=== PATIENT | male | born 1995 | race African-American/Black ===

== ENCOUNTER 2017-05-02 21:16 | Emergency (ER) | payer SELFPAY ==
[2017-05-02 21:55] LABS: Hematocrit 34.9 % (42.0-52.0); Hemoglobin 13.1 gm/dL (13.5-18.0); Mean Cell Volume 74.1 fl (78-100); Mean Corpuscular Hemoglobin 27.8 pg (27-31); Mean Corpuscular Hgb Conc 37.5 g/dl (32-36); Mean Platelet Volume 9.8 fl (6.0-9.5); NRBC# 0.2 k/mm3 (0-1); Neutrophil # 5.3 K/mm3 (1.3-6.0); Neutrophil % 54.6 % (42-75.0); Platelet Count 332 K/mm3 (150-450); Red Blood Count 4.71 M/mm3 (4.7-6.0); Red Cell Distribution Width 14.5 % (11.5-14.0); White Blood Count 9.7 K/mm3 (4.0-10.5)
--- NOTE | 2017-05-02 22:11 | ERNOTE ---
<Sher Martinez - Last Filed: 05/02/17 22:14> Medical Problem HPI - Narrative Date of Service: 05/02/17 - General Chief Complaint: General Assessment Time Seen by Provider: 05/02/17 21:32 - Immun/Allergies/Home Medications Immunizations: IMMUNIZATION HX Immunizations Up to Date Yes History of Influenza Vaccine No Allergies/Adverse Reactions: Allergies No Known Allergies Allergy (Verified 01/03/16 22:18) Home Medications: HOME MEDICATIONS Folic Acid 1 mg PO DAILY 01/03/16 [Last Taken Unknown] - History of Present History Narrative: Patient presents to the emergency room for what he senses a lump on his right rib cage that has been getting bigger for the last 3 months. Patient's girlfriend also states that she feels like has eyes MR jaundice. Patient incidentally has a past medical history of sickle cell disease but does not see a primary care physician. Date (Duration): 05/02/17 Timing: getting worse Review of Systems - Review of Systems Constitutional: Present: no symptoms reported EYE: Present: no symptoms reported ENT: Present: no symptoms reported Respiratory: Present: no symptoms reported Cardiology: Present: no symptoms reported Gastrointestinal/Abdominal: Present: no symptoms reported Genitourinary: Present: no symptoms reported Musculoskeletal: Present: no symptoms reported Skin: Present: See HPI, lumps, change in color Neurological: Present: no symptoms reported Endocrine: Present: no symptoms reported Hematologic/Lymphatic: Present: no symptoms reported Psych: Present: no symptoms reported All Other Systems: All systems neg except as marked - Patient's Past Medical History Patient History - Medical: Other Patient History - Cardiac/Respiratory: No pertinent hx Patient History - Cancer: No Hx of Cancer Patient History - Surgical Procedures: No surgical history Patient History - Other: None - Family History Mother Family History - Medical: Hypothyroidism Family History - Cardiac/Respiratory: Hypertension Father Family History - Medical: , History Unknown - Social History Living Situations: parents Abuse History: No History of abuse Psych History: No pertinent hx Smoking Status: Never smoker Have you smoked in the past 12 months: No Do you dip or chew tobacco: No Alcohol Use: none Drug Use: marijuana - Immunizations Immunizations Up to Date: Yes History of Influenza Vaccine: No Physical Exam - Physical Exam Narrative: patients sclera appears slightly off white, rip cage has a very small soft flat moveable lump. it was not painful to palpation. lesion is about 0.5x0.5cm. patient has them bilaterally on both sides of his rib cage. General Appearance: Present: wd/wn, alert, no apparent distress Head Exam: Present: normal inspection, no evidence of injury Eye Exam: Normal inspection: bilateral, PERRL: bilateral, EOMI: bilateral, Scleral icterus: bilateral - off white Ears, Nose, Throat: Present: normal ENT inspection, normal pharynx Neck: Present: normal inspection, nontender Respiratory: Present: no respiratory distress, normal breath sounds, no accessory muscle use, chest nontender, lungs clear Cardiovascular/Chest: Present: regular rate, rhythm, no murmur, normal peripheral pulses Gastrointestinal/Abdominal: Present: normal bowel sounds, nontender, nondistended, soft, no organomegaly. Absent: tenderness, abnormal bowel sounds , distended, guarding, rebound, McBurney sign, Obturator sign, Faria sign, Psoas sign, mass, hernia, hepatomegaly Back Exam: Present: normal inspection, normal range of motion, no CVA tenderness , no vertebral tenderness Extremity Exam: Present: normal inspection, non-tender, normal range of motion, no edema Neurological Exam: Present: alert, oriented, normal mood/affect, no motor/ sensory deficits, recreation aide II-XII nml as tested, normal cerebellar test. Absent: facial droop, motor weakness, disoriented to person, disoriented to time, disoriented to place, disoriented to situation Skin Exam: Present: normal color, warm/dry Lymphatic Exam: Present: no adenopathy ED Progress - Vital Signs Patient's Vital Signs:: I have reviewed the patient's vital signs. Vital Signs: Vital Signs 05/02/17 21:20 Temperature 36.6 C Pulse Rate 73 Respiratory 16 Rate Blood Pressure 119/71 O2 Sat by Pulse 99 Oximetry - Progress/Reassessment Chief Complaint: General Assessment Progress:: Unchanged - Transfer of Care Physician Sign Out: Sher Martinez Brief History: girlfriend feels sclera is more yellow Receiving Physician: Thi Zamora Pending Results: Labs Expected Disposition: Discharge Plan - Plan Plan: patient to obtain a PCP tomorrow, Dr Bradford to take over care. Patient to be discharged if CMP is WNL Departure - Departure Clinical Impression: Elevated bilirubin Disposition: Home self-care Condition: Good <Thi Zamora - Last Filed: 05/02/17 22:59> Medical Problem HPI - Immun/Allergies/Home Medications Immunizations: IMMUNIZATION HX Immunizations Up to Date Yes History of Influenza Vaccine No ED Progress - Vital Signs Vital Signs: Vital Signs 05/02/17 05/02/17 21:20 22:40 Temperature 36.6 C Pulse Rate 73 70 Respiratory 16 16 Rate Blood Pressure 119/71 120/72 O2 Sat by Pulse 99 97 Oximetry Plan - Plan Plan: Pt received IV hydration and was discharged home to follow up with PCP
[2017-05-02 22:12] LABS: Albumin * 4.2 gm/dl (3.4-5.0); Anion Gap 13.7 mmol/L (6.8-13.8); BUN/Creatinine Ratio 7.3 (9.0-21.6); Bilirubin, Total 4.4 mg/dL (0.0-1.1); Ca. Corrected For Albumin 8.3 mg/dL (8.4-10.2); Calcium * 8.8 mg/dL (7.9-10.9); Carbon Dioxide 28.9 mmol/L (24-32.6); Potassium 3.6 mmol/L (3.4-4.6); Total Protein 7.2 gm/dL (6.2-8.2)
[2017-05-02] MEDS ORDERED: NORMAL SALINE 1,000 ML IV ONE (22:30)
[2017-05-03] VITALS: BP 121/72
== END 2017-05-02 23:58 | disposition home or self-care (01) ==
LOC: ER 21:16
DX: E80.7 Disorder of bilirubin metabolism, unspecified (principal); Z86.2 Personal history of diseases of the blood and blood-forming organs and certain disorders involving the immune mechanism

== ENCOUNTER 2017-05-25 23:43 | Emergency (ER) | payer SELFPAY ==
--- NOTE | 2017-05-26 00:09 | ERNOTE ---
Headache ER HPI - General Presenting Symptoms: headache Time Seen by Provider: 05/25/17 23:58 Source: patient Exam Limitations: no limitations - Immun/Allergies/Home Medications Immunizations: IMMUNIZATION HX Immunizations Up to Date Yes History of Influenza Vaccine No Hx Pneumococcal Vaccination No Allergies/Adverse Reactions: Allergies No Known Allergies Allergy (Verified 01/03/16 22:18) Home Medications: HOME MEDICATIONS SUMAtriptan SUCCINATE [Imitrex] 50 mg PO Q2H PRN #6 tab 05/26/17 [Last Taken Unknown] - Pain Pain Score: 7 - History of Present Illness Activity at onset: other Timing of Headache: abrupt Context Headache: Absent: meningitis exposure, recent head injury < 24 hrs ago Quality: Present: throbbing Severity Maximum: Present: severe Severity-Currently: Present: moderate Headache frequency: Present: occasional headaches Modifying Factors - (Improves): Reports: rest Modifying Factors - (Worsens): Reports: movement, exposure to light Associated Symptoms: Reports: nausea, vision changes - blurry vision 15-20 minutes prior to headache Exacerbated by:: Reports: light, noise Review of Systems - Review of Systems Constitutional: Absent: recent illness EYE: Present: blurred vision ENT: Absent: nose congestion, nasal drainage Respiratory: Absent: shortness of breath Cardiology: Absent: chest pain Gastrointestinal/Abdominal: Present: nausea Genitourinary: Present: no symptoms reported Musculoskeletal: Present: neck pain - left side Skin: Absent: rash Neurological: Absent: dizziness/light-headedness, weakness, numbness, tingling Endocrine: Absent: excessive sweating, flushing Hematologic/Lymphatic: Present: no symptoms reported Psych: Present: no symptoms reported - Patient's Past Medical History Patient History - Medical: Other Patient History - Cardiac/Respiratory: No pertinent hx Patient History - Cancer: No Hx of Cancer Patient History - Surgical Procedures: Other Patient History - Other: None - Family History Mother Family History - Medical: Hypothyroidism Family History - Cardiac/Respiratory: Hypertension Father Family History - Medical: , History Unknown - Social History Living Situations: parents Abuse History: No History of abuse Psych History: No pertinent hx Smoking Status: Never smoker Have you smoked in the past 12 months: No Do you dip or chew tobacco: No Alcohol Use: none Drug Use: none - Immunizations Immunizations Up to Date: Yes Hx Pneumococcal Vaccination: No History of Influenza Vaccine: No Physical Exam - Physical Exam General Appearance: Present: wd/wn, alert, no apparent distress Head Exam: Present: normal inspection, no evidence of injury Eye Exam: PERRL: bilateral, EOMI: bilateral Ears, Nose, Throat: Present: normal ENT inspection Neck: Present: normal inspection, supple, tender lateral - left Respiratory: Present: no respiratory distress, no accessory muscle use Back Exam: Present: normal inspection, normal range of motion, no vertebral tenderness Extremity Exam: Present: normal inspection, normal range of motion, no edema Neurological Exam: Present: alert, oriented, normal mood/affect, no motor/ sensory deficits Skin Exam: Present: normal color, warm/dry Lymphatic Exam: Present: no adenopathy ED Progress - Vital Signs Vital Signs: Vital Signs 05/25/17 23:50 Temperature 36.6 C Pulse Rate 74 Respiratory 14 Rate Blood Pressure 134/80 - Progress/Reassessment Chief Complaint: Headache Progress:: Improved Progress Note-Subjective: 05/26/17 01:31 Pt. sleeping, when awakened he reports 5/10 pain Departure Clinical Impression: Migraine headache with aura Qualifiers: Status migrainosus presence: without status migrainosus Intractability: not intractable Qualified Code(s): G43.109 - Migraine with aura, not intractable, without status migrainosus - Departure Disposition: Home Follow Up Needed Condition: Good Instructions: Migraine Headache, [id number] Additional Instructions: establish with a primary care physician and follow up for maintenance treatment Prescriptions: SUMAtriptan SUCCINATE [Imitrex] 50 mg PO Q2H PRN #6 tab PRN Reason: migraines
[2017-05-26] MEDS ORDERED: NALBUPHINE HCL 20 MG/ML AMPUL ONE (00:11)
[2017-05-26] MEDS ORDERED: SUMAtriptan SUCCINATE 6 MG/0.5 ML VIAL SC ONE ×2 (00:22→00:27)
[2017-05-26] MEDS ORDERED: KETOROLAC TROMETHAMINE 30 MG/ML VIAL IV ONE (00:22)
[2017-05-26] MEDS ORDERED: NORMAL SALINE 1,000 ML IV ONE (00:22)
[2017-05-26] MEDS ORDERED: ORPHENADRINE CITRATE 30 MG/ML VIAL IV ONE (00:22)
[2017-05-26] MEDS ORDERED: KETOROLAC TROMETHAMINE 30 MG/ML VIAL ONE (00:27)
[2017-05-26] MEDS ORDERED: ORPHENADRINE CITRATE 30 MG/ML VIAL ONE (00:27)
[2017-05-26] MEDS ORDERED: ONDANSETRON HCL/PF 2 MG/ML VIAL ONE (00:27)
[2017-05-26] MEDS ORDERED: ONDANSETRON HCL/PF 2 MG/ML VIAL IV ONE (00:29)
[2017-05-26 01:38] VITALS: BP 127/68
== END 2017-05-26 01:50 | disposition home or self-care (01) ==
LOC: ER 23:43
DX: G43.109 Migraine with aura, not intractable, without status migrainosus (principal)
CPT/HCPCS: 96372; 96374; 96375; 99284; J2405

== ENCOUNTER 2017-06-18 12:01 | Emergency (ER) | payer SELFPAY ==
[2017-06-18] MEDS ORDERED: HYDROmorphone HCL 1 MG/ML DISP.SYRIN ONE (12:54)
[2017-06-18] MEDS ORDERED: HYDROmorphone HCL 1 MG/ML DISP.SYRIN IV ONE (12:55)
[2017-06-18] MEDS ORDERED: NORMAL SALINE 1,000 ML IV PRN (13:03)
[2017-06-18 13:05] LABS: Hematocrit 31.5 % (42.0-52.0); Hemoglobin 11.9 gm/dL (13.5-18.0); Mean Cell Volume 74.5 fl (78-100); Mean Corpuscular Hemoglobin 28.1 pg (27-31); Mean Corpuscular Hgb Conc 37.8 g/dl (32-36); Mean Platelet Volume 9.6 fl (6.0-9.5); Platelet Count 334 K/mm3 (150-450); Red Blood Count 4.23 M/mm3 (4.7-6.0); Red Cell Distribution Width 14.6 % (11.5-14.0); White Blood Count 11.4 K/mm3 (4.0-10.5)
[2017-06-18 13:07] LABS: Total Cells Counted 100
[2017-06-18 13:21] LABS: ALT 16 U/L (19-67); AST 24 U/L (0-48); Albumin * 4.2 gm/dl (3.4-5.0); Alkaline Phosphatase * 47 U/L (50-170); Anion Gap 12.6 mmol/L (6.8-13.8); BUN/Creatinine Ratio 10.6 (9.0-21.6); Bilirubin, Total 4.4 mg/dL (0.0-1.1); Blood Urea Nitrogen 9 mg/dL (6-23); Ca. Corrected For Albumin 8.3 mg/dL (8.4-10.2); Calcium * 8.8 mg/dL (7.9-10.9); Carbon Dioxide 25.9 mmol/L (24-32.6); Chloride 106 mmol/L (97-106); Glucose * 91 mg/dL (70-110); Potassium 3.5 mmol/L (3.4-4.6); Sodium 141 mmol/L (132-142); Total Protein 7.1 gm/dL (6.2-8.2)
[2017-06-18 13:22] LABS: Troponin I Less than 0.017 ng/ml (0.00-0.10)
[2017-06-18 13:48] LABS: Band 1 % (0-2.0); Eosinophil 3 % (0-3); Lymphocyte 29 % (20-51); Monocyte 14 % (0-9); Neutrophil 53 % (42-75); Platelet Estimate Normal (NORMAL); Target Cells 2+
[2017-06-18 13:50] LABS: Schistocytes 1+; Spherocyte 1+; Tear Drop Cells 1+
[2017-06-18 13:51] LABS: Anisocytosis 1+; Poikilocytosis 1+
[2017-06-18] MEDS ORDERED: NORMAL SALINE 1,000 ML IV ONE ×2 (13:59→17:57)
--- NOTE | 2017-06-18 14:16 | ERNOTE ---
Upper Extremity HPI - Narrative Date of Service: 06/18/17 - General Extremities Pain Location: shoulder: right Time Seen by Provider: 06/18/17 12:38 Source: patient - Immun/Allergies/Home Medications Immunizations: IMMUNIZATION HX Immunizations Up to Date Yes History of Influenza Vaccine No Hx Pneumococcal Vaccination No Allergies/Adverse Reactions: Allergies Allergy/AdvReac Type Severity Reaction Status Date / Time No Known Allergies Allergy Verified 06/18/17 12:15 Home Medications: HOME MEDICATIONS NK [No Home Medication] 06/17/17 [Last Taken Unknown] - History of Present Illness Narrative: 22-year-old male presents to the emergency room 41 describes a sickle cell pain to his right shoulder and low back. Patient was recently seen yesterday by Jazzy paige in the clinic, Who treated him for sickle cell and was concerned for crisis. Patient states that he has been having this pain a few days ago and has continually gradually worsened over the last few days. Pain is at a 7. States pain starts in the shoulder and goes down his right arm into his hand. Patient states that he has pain in his low back that started last night. Patient states that yesterday after his fluids and oxygen and he did not feel well and did have emesis 2 last night. Date (Duration): 06/18/17 Occurred: yesterday Location of Incident: home Modifying Factors - (Improves): Reports: pain medication Other Injuries: Reports: none Review of Systems - Narrative Narrative: right arm pain, low right back pain, denies chest pain and denies shortness of breath. - Review of Systems Constitutional: Present: See HPI EYE: Present: no symptoms reported ENT: Present: no symptoms reported Respiratory: Present: no symptoms reported Cardiology: Present: no symptoms reported Gastrointestinal/Abdominal: Present: See HPI, nausea Genitourinary: Present: no symptoms reported Musculoskeletal: Present: See HPI, joint pain Skin: Present: no symptoms reported Neurological: Present: no symptoms reported Endocrine: Present: no symptoms reported Hematologic/Lymphatic: Present: no symptoms reported, See HPI Psych: Present: no symptoms reported All Other Systems: All systems neg except as marked - Patient's Past Medical History Patient History - Medical: Other Patient History - Cardiac/Respiratory: No pertinent hx Patient History - Cancer: No Hx of Cancer Patient History - Surgical Procedures: Other Patient History - Other: None - Family History Mother Family History - Medical: Hypothyroidism Family History - Cardiac/Respiratory: Hypertension Father Family History - Medical: , History Unknown Family History - Cancer: Prostate - Social History Living Situations: home Abuse History: No History of abuse Psych History: No pertinent hx Smoking Status: Never smoker Alcohol Use: none Drug Use: none - Immunizations Immunizations Up to Date: Yes Hx Pneumococcal Vaccination: No History of Influenza Vaccine: No Physical Exam - Physical Exam Narrative: patient has discomfort with ROm to right shoulder and low back. General Appearance: Present: wd/wn, alert, no apparent distress Head Exam: Present: normal inspection, no evidence of injury Eye Exam: Normal inspection: bilateral, PERRL: bilateral, EOMI: bilateral Ears, Nose, Throat: Present: normal ENT inspection, normal pharynx Neck: Present: normal inspection, nontender, supple, full range of motion Respiratory: Present: no respiratory distress, normal breath sounds, no accessory muscle use, chest nontender, lungs clear. Absent: chest tenderness, respiratory distress Cardiovascular/Chest: Present: regular rate, rhythm, no murmur, normal peripheral pulses Peripheral Pulses: N=norm/S=strong/W=weak/B=bound/A=absent: Radial (R): Normal, Radial (L): Normal, Dorsalis-pedis (R): Normal, Dorsalis-pedis (L): Normal Gastrointestinal/Abdominal: Present: normal bowel sounds, nontender, nondistended, soft, no organomegaly. Absent: distended Back Exam: Present: normal inspection, CVA tenderness (R) Extremity Exam: Present: normal inspection, normal range of motion, no edema, bony tenderness, other - pain with ROm to right shoulder Neurological Exam: Present: alert, oriented, normal mood/affect, no motor/ sensory deficits, software release manager II-XII nml as tested. Absent: facial droop, motor weakness Skin Exam: Present: normal color, warm/dry Lymphatic Exam: Present: no adenopathy ED Progress - Results and Orders Patient's Lab Results:: I have reviewed the patient's lab results. - Vital Signs Patient's Vital Signs:: I have reviewed the patient's vital signs. Vital Signs: Vital Signs 06/18/17 06/18/17 06/18/17 12:11 13:04 13:35 Temperature 36.9 C Pulse Rate 83 70 70 Respiratory 16 15 16 Rate Blood Pressure 158/70 113/66 127/74 O2 Sat by Pulse 96 100 100 Oximetry - X-Ray X-Ray #1 X-Ray: chest Interpretation: Reviewed by me X-ray Comments: History: right shoulder pain, sickle cell Technique: Frontal and lateral views of the chest are evaluated. (2 ) views. Comparison: November 14, 2015. Findings: The lungs are symmetrically inflated. No focal consolidation. No pneumothorax or pleural effusion. Borderline cardiac silhouette enlargement. Mediastinal contours and pulmonary vasculature is normal. No acute osseous findings. IMPRESSION: Borderline cardiac silhouette enlargement. No acute pulmonary findings. Electronically signed by Vladimir Chaney D.O.. Vladimir Chaney DO Dict: 06/18/171334 Typed: 06/18/171334/ - Progress/Reassessment Chief Complaint: Upper Extremity Injury/Problem Progress:: Improved Plan - Plan Plan: After speaking with Jazzy patient's nurse practitioner and Dr. garcia, is felt that patient should be transferred to [facility] for further workup for his sickle cell crisis and the possible need for phresis or exchange. Hematological oncologist spoken to at [facility], and he agrees the patient needs to be directly admitted to the FLOOR. Patient and his significant other agree to this plan at this time. patient did not want to be transferred by ambulance to [facility]. patient states his girlfriend will drive him there. patient signed out AMA. I attempted to explain the risk and benefits of am EMS transfer to the patient and he continue to state he did not want to go in an ambulance. patient acknowledged that he understood the risks including , ME or PE. patient aware and still opted to sign out AMA Departure Clinical Impression: Sickle cell crisis - Departure Disposition: Against medical advice Condition: Stable
[2017-06-18 15:11] LABS: Urine Appearance Clear; Urine Bacteria None Seen; Urine Bilirubin Negative (NEGATIVE); Urine Blood Negative /ul (NEGATIVE); Urine Color Yellow; Urine Ketone Negative (NEGATIVE); Urine Nitrite Negative (NEGATIVE); Urine Protein Negative (NEGATIVE); Urine RBC None Seen /hpf (0-5); Urine Urobilinogen Normal (NORMAL); Urine WBC 0-5 /hpf (0-5)
[2017-06-18 15:14] LABS: Cocaine Ur Negative (NEGATIVE); Urine Barbiturate Negative (NEGATIVE); Urine Benzodiazepines Negative (NEGATIVE); Urine Opiates Negative (NEGATIVE); Urine PCP Negative (NEGATIVE)
[2017-06-18 15:15] LABS: Urine THC Positive (NEGATIVE)
[2017-06-18 18:45] VITALS: BP 122/67
== END 2017-06-18 18:50 | disposition left against medical advice (07) ==
LOC: ER 12:01
DX: D57.00 Hb-SS disease with crisis, unspecified (principal); Z53.21 Procedure and treatment not carried out due to patient leaving prior to being seen by health care provider

== ENCOUNTER 2017-06-24 19:41 | Emergency (ER) | payer SELFPAY ==
[2017-06-24] MEDS ORDERED: NORMAL SALINE 1,000 ML IV ONE (20:08)
[2017-06-24] MEDS ORDERED: KETOROLAC TROMETHAMINE 30 MG/ML VIAL IV ONE (20:19)
--- NOTE | 2017-06-24 20:24 | ERNOTE ---
Upper Extremity HPI - Narrative Date of Service: 06/24/17 - General Extremities Pain Location: arm: right Time Seen by Provider: 06/24/17 20:00 Source: patient Exam Limitations: no limitations - Immun/Allergies/Home Medications Immunizations: IMMUNIZATION HX Immunizations Up to Date No: Unknown History of Influenza Vaccine No Hx Pneumococcal Vaccination No Allergies/Adverse Reactions: Allergies Allergy/AdvReac Type Severity Reaction Status Date / Time No Known Allergies Allergy Verified 06/18/17 12:15 Home Medications: HOME MEDICATIONS Folic Acid 1 mg PO DAILY #30 tablet 06/24/17 [Last Taken Unknown] Naproxen [Naprosyn] 500 mg PO BID PRN #60 tab 06/24/17 [Last Taken Unknown] oxyCODONE HCL/ACETAMINOPHEN [Percocet 5 MG/325 MG] 1 tab PO Q6H PRN #20 tab 05/02 [Last Taken Unknown] - History of Present Illness Narrative: Pt. comes in with c/o R arm pain for 2 days that is aching in nature and states that he has also has some fatigue, malaise, and SOB with exertion. Pt. denies any fever, CP, sinus congestion, rhinorrhea, sore throat, alleviating factors or aggravating factors. Pt. states that he has been seen for a flare up with the same symptoms 6 days ago and was transferred to [facility] where they hydrated him and sent him home but did not call in any pain medications for him. Pt. also states that the outpatient tests that he was supposed to get this week and his follow up appointment with his new PCP were cancelled due to his insurance cancelling. Review of Systems - Review of Systems Constitutional: Present: weakness, fatigue, malaise. Absent: fever, chills EYE: Present: no symptoms reported ENT: Present: no symptoms reported. Absent: nose pain, nose congestion, nasal drainage Respiratory: Present: shortness of breath. Absent: cough Cardiology: Absent: chest pain, palpitations, edema Gastrointestinal/Abdominal: Present: no symptoms reported. Absent: nausea, vomiting, diarrhea Genitourinary: Present: no symptoms reported Musculoskeletal: Present: joint pain - R arm. Absent: back pain Skin: Present: no symptoms reported Neurological: Present: no symptoms reported. Absent: headache, dizziness/light- headedness, numbness, tingling All Other Systems: All systems neg except as marked - Patient's Past Medical History Patient History - Medical: Other - sickle cell Patient History - Cardiac/Respiratory: No pertinent hx Patient History - Cancer: No Hx of Cancer Patient History - Surgical Procedures: Other Patient History - Other: None - Family History Mother Family History - Medical: Hypothyroidism Family History - Cardiac/Respiratory: Hypertension Father Family History - Medical: , History Unknown Family History - Cancer: Prostate - Social History Living Situations: parents Abuse History: No History of abuse Psych History: No pertinent hx Smoking Status: Never smoker Have you smoked in the past 12 months: Yes - Marijuana Do you dip or chew tobacco: No Alcohol Use: none Drug Use: marijuana - Immunizations Immunizations Up to Date: No - Unknown Hx Pneumococcal Vaccination: No History of Influenza Vaccine: No Physical Exam - Physical Exam General Appearance: Present: wd/wn, alert, no apparent distress Head Exam: Present: normal inspection, no evidence of injury Eye Exam: Normal inspection: bilateral, PERRL: bilateral, EOMI: bilateral Ears, Nose, Throat: Present: normal ENT inspection, normal pharynx Neck: Present: normal inspection, nontender. Absent: lymphadenopathy (R), lymphadenopathy (L) Respiratory: Present: no respiratory distress, normal breath sounds, no accessory muscle use, chest nontender, lungs clear Cardiovascular/Chest: Present: regular rate, rhythm, no murmur, normal peripheral pulses Gastrointestinal/Abdominal: Present: normal bowel sounds, nontender, nondistended, soft, no organomegaly Back Exam: Present: normal inspection, normal range of motion, no CVA tenderness , no vertebral tenderness Extremity Exam: Present: normal inspection, non-tender, normal range of motion, no edema Neurological Exam: Present: alert, oriented, normal mood/affect, no motor/ sensory deficits Skin Exam: Present: normal color, warm/dry. Absent: pallor, skin rash ED Progress - Date and Time Seen: Date and Time: 06/24/17 21:30 Pt. states that pain went from 8 to 6 with toradol denies any change in other change in symptoms but appears comfortable at this time. Am concerned by pt. fatigue and malaise and elevated retic count so consulted pt. dog bather at [facility] and Dr Chi recommends to start pt. on 1mg Folic acid and Percocet for pain. - Results and Orders Patient's Lab Results:: I have reviewed the patient's lab results. - Vital Signs Patient's Vital Signs:: I have reviewed the patient's vital signs. Vital Signs: Vital Signs 06/24/17 19:48 Temperature 36.5 C Pulse Rate 89 Respiratory 18 Rate Blood Pressure 109/66 O2 Sat by Pulse 99 Oximetry - EKG EKG: other - sinus arrhythmia with early repolarization and non specific ST elevation EKG read: Reviewed by me EKG Comments: interp by Dr Zamora - X-Ray X-Ray #1 X-Ray: chest Interpretation: Reviewed by me X-ray Comments: no consolidation, no cardiomegaly, no pulmonary congestion - Progress/Reassessment Chief Complaint: Upper Extremity Injury/Problem Progress:: Improved Departure Clinical Impression: Elevated bilirubin, Sickle cell anemia with pain - Departure Disposition: Home self-care Condition: Good Instructions: Sickle Cell Anemia, Adult, [id number], Bilirubin Test Additional Instructions: Please follow up with your dog bather at [facility] as planned on the and Taan Velarde in 2-3 days. Referrals: Tana Velarde ARNP [Primary Care Provider] - Prescriptions: Folic Acid 1 mg PO DAILY #30 tablet Naproxen [Naprosyn] 500 mg PO BID PRN #60 tab PRN Reason: Pain oxyCODONE HCL/ACETAMINOPHEN [Percocet 5 MG/325 MG] 1 tab PO Q6H PRN #20 tab PRN Reason: Pain
[2017-06-24 20:30] LABS: Hematocrit 32.1 % (42.0-52.0); Mean Cell Volume 75.4 fl (78-100); Mean Platelet Volume 9.6 fl (6.0-9.5); Platelet Count 316 K/mm3 (150-450); Red Blood Count 4.26 M/mm3 (4.7-6.0); Red Cell Distribution Width 14.4 % (11.5-14.0); White Blood Count 10.3 K/mm3 (4.0-10.5)
[2017-06-24] MEDS ORDERED: KETOROLAC TROMETHAMINE 30 MG/ML VIAL ONE (20:34)
[2017-06-24 20:35] LABS: Hemoglobin 12.2 gm/dL (13.5-18.0)
[2017-06-24 20:36] LABS: Mean Corpuscular Hemoglobin 28.6 pg (27-31)
[2017-06-24 20:37] LABS: Total Cells Counted 100
[2017-06-24 21:12] LABS: ALT 15 U/L (19-67); AST 19 U/L (0-48); Albumin * 4.1 gm/dl (3.4-5.0); Alkaline Phosphatase * 55 U/L (50-170); Anion Gap 14.2 mmol/L (6.8-13.8); BNP * 44 pg/mL (5-140); Bilirubin, Total 4.1 mg/dL (0.0-1.1); Blood Urea Nitrogen 8 mg/dL (6-23); Ca. Corrected For Albumin 8.5 mg/dL (8.4-10.2); Calcium * 8.9 mg/dL (7.9-10.9); Carbon Dioxide 26.4 mmol/L (24-32.6); Chloride 106 mmol/L (97-106); Glucose * 99 mg/dL (70-110); Potassium 3.6 mmol/L (3.4-4.6); Sodium 143 mmol/L (132-142)
[2017-06-24 21:13] LABS: Troponin I Less than 0.017 ng/ml (0.00-0.10)
[2017-06-24 21:30] LABS: Eosinophil 3 % (0-3); Lymphocyte 32 % (20-51); Neutrophil 53 % (42-75); Neutrophil # 5.5 K/mm3 (1.3-6.0)
[2017-06-24 21:31] LABS: Toxic Granulation Trace
[2017-06-24 21:32] LABS: Giant Platelets Trace; Platelet Estimate Normal (NORMAL)
[2017-06-24 21:33] LABS: Hypochromia 2+; Microcytosis 1+; Target Cells 3+
[2017-06-24 21:34] LABS: Anisocytosis 1+
[2017-06-24 21:35] LABS: Polychromasia Trace
[2017-06-24 21:39] LABS: Sickle Cells 1+
[2017-06-24] MEDS ORDERED: oxyCODONE HCL/ACETAMINOPHEN 1 TAB TABLET PO ONE (21:39)
[2017-06-24] MEDS ORDERED: oxyCODONE HCL/ACETAMINOPHEN 1 TAB TABLET ONE (21:50)
[2017-06-24 22:41] VITALS: BP 140/68
--- NOTE | 2017-06-25 05:53 | PATHPSR ---
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 The patient was seen at [facility] clinic on 2015 after he presented to [facility] emergency department in painful crisis on 11/12/2015. The patient reported at that time to have back and arm pain. Patient presented with very similar symptoms and had a peripheral smear evaluation on 06/16/2017. The patient is presenting again for right arm pain and a peripheral smear review by pathologist is ordered due to known history of sickle cell disease (SC type) and arm pain. CBC: WBC 10.3 K/mm3, hemoglobin 12.2 gm/dl, hematocrit 32.1 %, MCV is 75.4 fl, MCH is 28.6 pg, MCHC is 38.0 g/dl, Platelet count 316,000. Manual differential: Neutrophils 53 %, bands 0 %, lymphocytes 32 %, monocytes 8 %, eosinophils 3 %, basophils 0 %, atypical reactive lymphocytes 4%. RED BLOOD CELLS: Sickle cells 1+, Hemoglobin SC poikilocytes 1+, target cells 3+ , polychromasia 2+, hypochromia 1+, microcytosis 1+ PLATELETS: Rare Giant Platelets WHITE BLOOD CELLS: Trace toxic granulation, toxic vacuolization DIAGNOSIS: PERIPHERAL BLOOD SMEAR, REVIEW BY PATHOLOGIST: -EVIDENCE OF ACTIVE HEMOLYSIS IN A PATIENT WITH KNOWN SICKLE CELL HEMOGLOBIN (SC) DISEASE, SEE COMMENT COMMENT: Reticulocyte count elevated to 5.6%, active sickling and hemoglobin SC poikilocytes are present on peripheral smear examination. This finding likely explains the symptoms of pain. This patient is known to [facility] and is a scheduled for visit on 07/03/2017. The reactive WBC features present on the previous peripheral smear review ([facility] [id number] reported 06/16/2017) are much less pronounced. No immature elements or malignancy is identified on our examination.
[2017-06-25 09:46] LABS: Atypical (Reactive) Lymph 4 % (0-2); Monocyte 8 % (0-9)
== END 2017-06-24 22:15 | disposition home or self-care (01) ==
LOC: ER 19:41
DX: D57.00 Hb-SS disease with crisis, unspecified (principal); R17 Unspecified jaundice